=== PATIENT | male | born 1980 | race Caucasian/White ===

== ENCOUNTER 2017-11-21 09:37 | Emergency (ER) | payer MEDICAID ==
[~2017-11-21] VITALS: Ht 175.3 cm; Wt 63.5 kg
[2017-11-21 09:59] VITALS: BP 127/78
[2017-11-21 10:29] LABS: BASOPHILS % (AUTO) 1.2 % (0.0-2.0); EOSINOPHILS % (AUTO) 1.5 % (0.0-3.0); HEMATOCRIT 48.9 % (42.0-52.0); HEMOGLOBIN 16.1 G/DL (14.2-18.0); LYMPHOCYTES % (AUTO) 28.3 % (20.0-45.0); MEAN CORPUSCULAR VOLUME 91 FL (80-99); MONOCYTES % (AUTO) 5.9 % (1.0-10.0); NEUTROPHILS % (AUTO) 63.2 % (45.0-75.0); PLATELET COUNT 229 K/UL (150-450); RED BLOOD COUNT 5.39 M/UL (4.70-6.10); RED CELL DISTRIBUTION WIDTH 12.4 % (11.6-14.8); WHITE BLOOD COUNT 6.2 K/UL (4.8-10.8)
--- NOTE | 2017-11-21 10:39 | Emergency Room Report ---
History of Present Illness General Chief Complaint: Vomiting Source: Patient Present Illness HPI Patient presents with complaints of some increased nausea Patient reports that over the past one and a half years He has had episodes of sweating Feeling weak Patient has had extensive alcohol disease Reports going through sobriety Fell off the wan in April However has been in rehabilitation for the past one month Denies any change in medications at this time He reports that previously when he was going through withdrawals Ativan seemed to help her symptoms and also seemed to help the episodes of sweating Currently denies any chest pain or shortness of breath denies any back or flank pain There was some report regarding blurring vision however patient reports that those are specific episodes that happen and resolve especially during the sweating episodes Allergies: Coded Allergies: No Known Allergies (Unverified , 11/21/17) Patient History Past Medical History: see triage record Pertinent Family History: none Reviewed Nursing Documentation: PMH: Agreed; PSxH: Agreed Nursing Documentation-PMH Hx Cardiac Problems: No - POLY DRUG USE Hx Seizures: Yes Review of Systems All Other Systems: negative except mentioned in HPI Physical Exam Vital Signs Date Time Temp Pulse Resp B/P (MAP) Pulse Ox O2 Delivery O2 Flow Rate FiO2 11/21/17 09:46 98.2 82 16 127/78 92 Room Air 98.2 Sp02 EP Interpretation: reviewed, normal General Appearance: well appearing, no apparent distress Head: normocephalic, atraumatic Eyes: bilateral eye PERRL, bilateral eye EOMI ENT: hearing grossly normal, normal pharynx, TMs + canals normal, uvula midline Neck: full range of motion, supple, no meningismus, no bony tend Respiratory: lungs clear, normal breath sounds, no rhonchi, no respiratory distress, no retraction, no accessory muscle use Cardiovascular #1: normal peripheral pulses, regular rate, rhythm, no edema, no gallop, no JVD, no murmur Gastrointestinal: normal bowel sounds, non tender, soft, no mass, no organomegaly, non-distended, no guarding, no hernia, no pulsatile mass, no rebound Genitourinary: no CVA tenderness Musculoskeletal: normal inspection Neurologic: oriented x3, responsive, messenger floorperson III-XII nml as tested, motor strength/ tone normal, sensory intact Psychiatric: mood/affect normal Skin: normal color, no rash, warm/dry, palpation normal Lymphatic: normal inspection, no adenopathy Medical Decision Making Diagnostic Impression: Primary Impression: Alcohol abuse Additional Impression: Vomiting ER Course Multiple differentials considered including but not limited to the right pathology, electrolyte abnormality, infectious pathology Patient remains hemodynamically stable Baseline blood work are appropriate Patient stable for close outpatient follow-up Labs Test 11/21/17 10:19 White Blood Count 6.2 K/UL (4.8-10.8) Red Blood Count 5.39 M/UL (4.70-6.10) Hemoglobin 16.1 G/DL (14.2-18.0) Hematocrit 48.9 % (42.0-52.0) Mean Corpuscular Volume 91 FL (80-99) Mean Corpuscular Hemoglobin 29.9 PG (27.0-31.0) Mean Corpuscular Hemoglobin Concent 32.9 G/DL (32.0-36.0) Red Cell Distribution Width 12.4 % (11.6-14.8) Platelet Count 229 K/UL (150-450) Mean Platelet Volume 6.9 FL (6.5-10.1) Neutrophils (%) (Auto) 63.2 % (45.0-75.0) Lymphocytes (%) (Auto) 28.3 % (20.0-45.0) Monocytes (%) (Auto) 5.9 % (1.0-10.0) Eosinophils (%) (Auto) 1.5 % (0.0-3.0) Basophils (%) (Auto) 1.2 % (0.0-2.0) Sodium Level 140 MMOL/L (136-145) Potassium Level 4.4 MMOL/L (3.5-5.1) Chloride Level 107 MMOL/L (98-107) Carbon Dioxide Level 27 MMOL/L (21-32) Anion Gap 6 mmol/L (5-15) Blood Urea Nitrogen 11 mg/dL (7-18) Creatinine 1.1 MG/DL (0.55-1.30) Estimat Glomerular Filtration Rate > 60 mL/min (>60) Glucose Level 113 MG/DL (74-106) Calcium Level 9.2 MG/DL (8.5-10.1) Total Bilirubin 0.3 MG/DL (0.2-1.0) Aspartate Amino Transf (AST/SGOT) 15 U/L (15-37) Alanine Aminotransferase (ALT/SGPT) 37 U/L (12-78) Alkaline Phosphatase 83 U/L (46-116) Total Protein 7.0 G/DL (6.4-8.2) Albumin 3.8 G/DL (3.4-5.0) Globulin 3.2 g/dL Albumin/Globulin Ratio 1.2 (1.0-2.7) Thyroid Stimulating Hormone (TSH) 0.532 uiU/mL (0.358-3.740) Free Thyroxine 0.85 NG/DL (0.76-1.46) Last Vital Signs Date Time Temp Pulse Resp B/P (MAP) Pulse Ox O2 Delivery O2 Flow Rate FiO2 11/21/17 09:59 98.2 16 127/78 92 Room Air 98.2 11/21/17 09:46 82 Status: improved Disposition: HOME, SELF-CARE Condition: Improved Referrals: NON PHYSICIAN (PCP) Additional Instructions: Patient is provided with the discharge instructions notified to follow up with primary doctor in the next 2-3 days otherwise return to the er with any worsening symptoms. Please note that this report is being documented using [employer] technology. This can lead to erroneous entry secondary to incorrect interpretation by the dictating instrument. Sally Nugent DO Nov 21, 2017 10:39
[2017-11-21 10:46] LABS: ANION GAP 6 mmol/L (5-15); BLOOD UREA NITROGEN 11 mg/dL (7-18); CALCIUM 9.2 MG/DL (8.5-10.1); CARBON DIOXIDE 27 MMOL/L (21-32); CHLORIDE 107 MMOL/L (98-107); CREATININE 1.1 MG/DL (0.55-1.30); POTASSIUM 4.4 MMOL/L (3.5-5.1); SODIUM 140 MMOL/L (136-145)
[2017-11-21 11:00] LABS: ALANINE AMINOTRANSFERASE 37 U/L (12-78); ALBUMIN 3.8 G/DL (3.4-5.0); ALBUMIN/GLOBULIN RATIO 1.2 (1.0-2.7); ALKALINE PHOSPHATASE 83 U/L (46-116); ASPARTATE AMINO TRANSFERASE 15 U/L (15-37); BILIRUBIN,TOTAL 0.3 MG/DL (0.2-1.0)
[2017-11-21 11:56] VITALS: BP 132/84
== END 2017-11-21 11:30 | disposition home or self-care (01) ==
LOC: EMR 09:59
DX: F10.10 Alcohol abuse, uncomplicated (principal); R11.10 Vomiting, unspecified
CPT/HCPCS: 36415; 80053; 84439; 84443; 85025; 99283

== ENCOUNTER 2017-12-08 15:47 | Emergency (ER) | payer MEDICAID ==
[~2017-12-08] VITALS: Ht 175.3 cm; Wt 112.5 kg
[2017-12-08] MEDS ORDERED: TYLENOL EXTRA500 MG ORAL (16:04)
--- NOTE | 2017-12-08 16:05 | Emergency Room Report ---
History of Present Illness General Chief Complaint: Sore Throat Source: Patient, Medical Record Present Illness HPI 37 yo male patient presents ER complaining of sore throat 4 days. Reports intermittent cough during this time. Denies fever. Reports taking NSAIDs for pain relief. Reports pain worse with swallowing. denies voice change or difficulty breathing. Denies neck pain. Denies chest pain, shortness breath, abdominal pain. Denies other acute symptoms. states he does not want any narcotic medications, currently in rehabilitation for drug use. Allergies: Coded Allergies: No Known Allergies (Unverified , 11/21/17) Patient History Past Medical History: see triage record Reviewed Nursing Documentation: PMH: Agreed; PSxH: Agreed Nursing Documentation-PMH Past Medical History: No History, Except For Hx Cardiac Problems: No - POLY DRUG USE Hx Seizures: Yes Review of Systems All Other Systems: negative except mentioned in HPI Physical Exam Vital Signs Date Time Temp Pulse Resp B/P (MAP) Pulse Ox O2 Delivery O2 Flow Rate FiO2 12/08/17 15:48 97.9 89 18 128/83 95 Room Air 97.9 Sp02 EP Interpretation: reviewed, normal General Appearance: well appearing, no apparent distress, alert, GCS 15, non- toxic Head: normocephalic, atraumatic Eyes: bilateral eye normal inspection, bilateral eye PERRL ENT: hearing grossly normal, normal pharynx, no angioedema, normal voice, TMs + canals normal, uvula midline, moist mucus membranes, tonsillar swelling, pharyngeal erythema, tonsillar exudate - left, mild, other - no uvula deviation Neck: full range of motion Respiratory: lungs clear, normal breath sounds, no rhonchi, no respiratory distress, no accessory muscle use, no wheezing, speaking full sentences, other - no stridor Musculoskeletal: back normal, digits/nails normal, gait/station normal, normal range of motion, non-tender Neurologic: alert, oriented x3, responsive, motor strength/tone normal, sensory intact Psychiatric: mood/affect normal Skin: no rash Lymphatic: no adenopathy Medical Decision Making PA Attestation Dr. Don is my supervising Physician whom patient management has been discussed with. Diagnostic Impression: Primary Impression: Pharyngitis ER Course Pt presents to ED c/o sore throat x4 days. DDX considered but are not limited to pharyngitis, laryngitis, URI, peritonsillar abscess, tonsillitis. Low suspicion for peritonsillar abscess, no neck stiffness, no hot potato voice , no stridor. Instructed patient to return to ER if these symptoms present. Does not require imaging at this time. VITAL SIGNS are WNL, patient is afebrile. ORDERS: -Dexamethasone -Viscous Lidocaine -Penicillin ER COURSE: Physical exam consistent with pharyngitis, small amount of exudate noted on left posterior pharynx, may be related to cough however will provide treatment to cover for possible bacterial infection while in the ER. Salt water gargles Instructed patient follow with primary care provider next 2-3 days. ER precautions given. Reports feeling better prior to discharge. DISCHARGE: Rx Tylenol for pain and fever symptoms At this time pt is stable for d/c to home. Patient is resting comfortably, in no acute distress, nontoxic appearing, talking without difficulty. Will provide with patient care instructions and any necessary prescriptions. Patient to take medication as instructed. Care plan and follow-up instructions provided. Patient questions asked and answered. Patient instructed to follow-up with primary care provider in 3 - 5 days. ER precautions given. Patient instructed to return to ER immediately for any new or worsening of symptoms including but not limited to intractable vomiting, difficulty breathing, inability to eat. - Please note that this Emergency Department Report was dictated using [employer] technology software, occasionally this can lead to erroneous entry secondary to interpretation by the dictation equipment. Last Vital Signs Date Time Temp Pulse Resp B/P (MAP) Pulse Ox O2 Delivery O2 Flow Rate FiO2 12/08/17 15:48 97.9 89 18 128/83 95 Room Air 97.9 Disposition: HOME, SELF-CARE Condition: Stable Scripts Acetaminophen* (TYLENOL EXTRA STRENGTH*) 500 Mg Tablet 500 MG ORAL Q8H PRN for Prn Headache/Temp > 101, #30 TAB 0 Refills Prov: Aris Hayden 12/08/17 Patient Instructions: Pharyngitis, [id number] Additional Instructions: Followup with primary care provider in 3 -5 days. Salt water gargles Rx provided for Tylenol for pain and fever symptoms Drink plenty of water. Take medications as directed. Patient questions asked and answered. ER precautions given, patient instructed to return to ER immediately for any new or worsening of symptoms including but not limited to intractable vomiting, difficulty breathing, inability to eat. Aris Hayden Dec 08, 2017 16:05
[2017-12-08] MEDS ORDERED: Bicillin LA 1.2MMU/2ML SYR IM ONE (16:15)
[2017-12-08] MEDS ORDERED: Lidocaine 2% Visc 15ml soln ORAL ONE (16:15)
[2017-12-08 16:40] VITALS: BP 128/83
[2017-12-08 16:42] VITALS: BP 128/83
== END 2017-12-08 16:24 | disposition home or self-care (01) ==
LOC: EMR 16:10
DX: J02.9 Acute pharyngitis, unspecified (principal)
CPT/HCPCS: 96372; 99283; J0561; J8540

== ENCOUNTER 2018-02-19 15:54 | Emergency (ER) | payer MEDICAID ==
[~2018-02-19] VITALS: Ht 175.3 cm; Wt 99.8 kg
[~2018-02-19 15:54] MED LIST: TYLENOL EXTRA500 MG ORAL
[2018-02-19] MEDS ORDERED: Luvox ORAL (16:09)
[2018-02-19] MEDS ORDERED: GABAPENTIN300 MG ORAL (16:09)
[2018-02-19] MEDS ORDERED: LAMICTAL25 MG ORAL (16:09)
[2018-02-19 16:14] VITALS: BP 118/70
[2018-02-19] MEDS ORDERED: Albuterol/Ipratropium 3ml neb HHN ONE (16:30)
--- NOTE | 2018-02-19 16:36 | Emergency Room Report ---
History of Present Illness General Chief Complaint: Upper Respiratory Illness Source: Patient Present Illness HPI 37-year-old male patient presents to ER complaining of cough and congestion for over the past week and a half. Reports coughing up purulent sputum. Denies hemoptysis. Denies history of asthma, heart disease, CHF. Denies recent travel or periods immobilization. Denies chest pain. Reports history of smoking pack of cigarettes a day, reports smoking for the past 20 years. Denies fever. Denies abdominal pain. States has been taking [id number] medications without relief of symptoms. denies history of COPD. Allergies: Coded Allergies: No Known Allergies (Unverified , 11/21/17) Patient History Past Medical History: see triage record Reviewed Nursing Documentation: PMH: Agreed; PSxH: Agreed Nursing Documentation-PMH Past Medical History: No History, Except For Hx Cardiac Problems: No - POLY DRUG USE Hx Cancer: Yes - kidney CA History Of Psychiatric Problem: Yes - depression, anxiety Hx Seizures: Yes Review of Systems All Other Systems: negative except mentioned in HPI Physical Exam Vital Signs Date Time Temp Pulse Resp B/P (MAP) Pulse Ox O2 Delivery O2 Flow Rate FiO2 02/19/18 16:04 98.0 71 14 118/70 96 Room Air 98.1 Sp02 EP Interpretation: reviewed, normal General Appearance: well appearing, no apparent distress, alert, GCS 15, non- toxic Head: normocephalic, atraumatic Eyes: bilateral eye normal inspection, bilateral eye PERRL ENT: hearing grossly normal, normal pharynx, no angioedema, normal voice, TMs + canals normal, uvula midline, moist mucus membranes, nasal congestion Neck: full range of motion, no bony tend Respiratory: lungs clear, no rhonchi, no respiratory distress, no accessory muscle use, no wheezing, decreased breath sounds, speaking full sentences Cardiovascular #1: regular rate, rhythm, no edema Musculoskeletal: back normal, digits/nails normal, gait/station normal, normal range of motion, non-tender Neurologic: alert, oriented x3, responsive, motor strength/tone normal, sensory intact Psychiatric: mood/affect normal Skin: no rash Medical Decision Making PA Attestation Dr. Klein is my supervising Physician whom patient management has been discussed with. Diagnostic Impression: Primary Impression: Atypical pneumonia ER Course Pt presents to ED c/o cough and congestion. DDX considered but are not limited to asthma, viral URI, influenza, bronchitis, pneumonia, sinusitis. VITAL SIGNS are WNL, patient is afebrile. Ordered breathing treatment and medication. ER COURSE PE patient has decreased breath sounds, no wheezes, rhonci or rales noted, will order CXR and breathing treatment. Albuterol/Atrovent breathing treatment provided. Following treatment patient states breathing symptoms improved, lungs clear to auscultation, normal breath sounds noted. Patient is resting comfortably in no acute distress, states feeling better. Will provide patient with inhaler and discharged to home. Chest x-ray negative for acute disease per the preliminary reading. Due to duration of symptoms and patient history of smoking, will provide patient with antibiotics to cover for possible atypical pneumonia. patient 95% on room oxygen, cap refill less than 2 seconds, no signs of cyanosis , okay for outpatient treatment and follow-up. will provide patient with Claritin-D for congestion symptoms. Advised patient on symptomatic care. Drink plenty of fluids. Advised patient stop smoking. ER precautions given. Advised patient to followup with PCP for further evaluation and referral to sales development specialist. DISCHARGE: -Rx given for Claritin-D -Rx provided for Albuterol MDI. -Rx provided for azithromycin At this time pt is stable for d/c to home. Patient is resting comfortably in no acute distress, nontoxic appearing, able to answer questions without difficulty. Patient to take medications as instructed Will provide with patient care instructions and any necessary prescriptions. Care plan and follow-up instructions provided. Patient instructed to follow-up with primary care provider in 3 - 5 days. Patient questions asked and answered. Patient reports understanding and agreement to treatment plan. ER precautions given. Patient instructed to return to ER immediately for any new or worsening of symptoms including but not limited to increasing SOB, persistent fever. - Please note that this Emergency Department Report was dictated using [employer] technology software, occasionally this can lead to erroneous entry secondary to interpretation by the dictation equipment. Pneumonia Chest X-Ray Diagnostic Results Chest X-Ray Diagnostic Results : Chest X-Ray Ordered: Yes # of Views/Limited/Complete: 1 View Indication: Chest Pain EP Interpretation: Yes PA Xray: Interpretation reviewed, by supervising MD, and agrees with findings. Interpretation: no consolidation, no effusion, no pneumothorax, no acute cardiopulmonary disease Impression: No acute disease RICARDO Hayden PA-C Last Vital Signs Date Time Temp Pulse Resp B/P (MAP) Pulse Ox O2 Delivery O2 Flow Rate FiO2 02/19/18 16:14 98.1 14 118/70 96 Room Air 98.1 02/19/18 16:14 71 Disposition: HOME, SELF-CARE Condition: Stable Scripts Azithromycin* (ZITHROMAX*) 250 Mg Tablet 250 MG ORAL DAILY, #6 TAB 0 Refills Take two tables once daily for 1 day, then one tablet once daily for 4 days. Prov: Aris Hayden 02/19/18 Loratadine/Pseudoephedrine (CLARITIN-D 24 HOUR TABLET) 1 Each Tab.er.24h 1 TAB PO DAILY, #24 TAB Prov: Aris Hayden 02/19/18 Albuterol Sulfate* (ALBUTEROL SULFATE MDI*) 8.5 Gm Hfa.aer.ad 2 PUFF INH Q4H, #1 INH 0 Refills Prov: Aris Hayden 02/19/18 Patient Instructions: Community-Acquired Pneumonia, Adult, [id number], Smoking Cessation, Tips for Success, [id number], Upper Respiratory Infection, Adult Additional Instructions: Followup with primary care provider in 3 -5 days. Take medications as directed. Patient questions asked and answered. ER precautions given, patient instructed to return to ER immediately for any new or worsening of symptoms. Aris Hayden Feb 19, 2018 16:36
[2018-02-19] MEDS ORDERED: ZITHROMAX250 MG ORAL (17:04)
[2018-02-19] MEDS ORDERED: ALBUTEROL SULF8.5 GM INH (17:04)
[2018-02-19] MEDS ORDERED: CLARITIN-D 241 EACH PO (17:04)
--- NOTE | 2018-02-19 17:07 | Diagnostic Imaging Report ---
Indication: Cough x10 days Technique: One view of the chest Comparison: none Findings: The lungs and pleural spaces are clear. The heart size is normal. There are multiple old healed rib fracture deformities on the right Impression: No acute process
[2018-02-19 17:09] VITALS: BP 118/70
== END 2018-02-19 17:09 | disposition home or self-care (01) ==
LOC: EMR 16:39
DX: J18.9 Pneumonia, unspecified organism (principal)
CPT/HCPCS: 71045; 94640; 94664; 99283; J7620